=== PATIENT | male | born 1995 | race Caucasian/White ===

== ENCOUNTER 2016-12-26 05:52 | Emergency (ER) | payer OTHER ==
[~2016-12-26] VITALS: Ht 182.9 cm; Wt 114.8 kg
[2016-12-26] MEDS ORDERED: VIROPTIC7.5 ML LEFT EYE (06:35)
[2016-12-26] MEDS ORDERED: ACYCLOVIR400 MG PO (06:35)
[2016-12-26 07:05] VITALS: BP 148/98
== END 2016-12-26 07:07 | disposition home or self-care (01) ==
LOC: EME 05:52
DX: B00.52 Herpesviral keratitis (principal); F32.9 Major depressive disorder, single episode, unspecified; F41.9 Anxiety disorder, unspecified
CPT/HCPCS: 99281; 99283

== ENCOUNTER 2017-01-05 14:49 | Emergency (ER) | payer OTHER ==
[~2017-01-05] VITALS: Ht 185.4 cm; Wt 114.8 kg
[~2017-01-05 14:49] MED LIST: ACYCLOVIR400 MG PO; VIROPTIC7.5 ML LEFT EYE
[2017-01-05] MEDS ORDERED: BUSPAR7.5 MG PO (16:39)
[2017-01-05] MEDS ORDERED: VYVANSE50 MG PO (16:39)
[2017-01-05 17:06] VITALS: BP 147/98
== END 2017-01-05 17:07 | disposition home or self-care (01) ==
LOC: EME 14:49
DX: Z76.0 Encounter for issue of repeat prescription (principal); F41.9 Anxiety disorder, unspecified; F90.9 Attention-deficit hyperactivity disorder, unspecified type; F32.9 Major depressive disorder, single episode, unspecified; F17.200 Nicotine dependence, unspecified, uncomplicated
CPT/HCPCS: 99281; 99283